=== PATIENT | male | born 1975 | race Two or more races ===

== ENCOUNTER 2021-01-05 22:18 | Emergency (ER) | payer SELFPAY ==
[~2021-01-05] VITALS: Ht 165.1 cm; Wt 109.3 kg
--- NOTE | 2021-01-05 22:30 | NUR ---
PT BIBRA C/O "BEING DRUNK". PT [id number] BREATHING EVENLY AND UNLABORED. PT WALKS WITH A STEADY GAIT. PT ATTACHED TO MONITOR AND POX. PT GIVEN BLANKET AND CALL LIGHT WITHIN REACH
--- NOTE | 2021-01-06 01:22 | NUR ---
Patient is resting comfortably in bed with eyes closed. Easily aroused. VSS
--- NOTE | 2021-01-06 02:15 | NUR ---
Patient is resting comfortably in bed with eyes closed. Easily aroused. VSS
--- NOTE | 2021-01-06 03:40 | NUR ---
pt attached to monitor and pox, breathing evenly and unlabored
--- NOTE | 2021-01-06 05:05 | NUR ---
Patient is resting comfortably in bed with eyes closed. Easily aroused. VSS
[2021-01-06 06:20] VITALS: BP 137/99
--- NOTE | 2021-01-06 06:20 | NUR ---
Patient discharged to home in stable condition. Written and verbal after care instructions given. Patient verbalizes understanding of instruction.
== END 2021-01-06 06:20 | disposition home or self-care (01) ==
LOC: ER 22:30
DX: F10.129 Alcohol abuse with intoxication, unspecified (principal); Y90.9 Presence of alcohol in blood, level not specified
CPT/HCPCS: 82962-TC